=== PATIENT | female | born 1965 | race Caucasian/White ===

== ENCOUNTER 2019-08-13 11:51 | Emergency (ER) | payer OTHER ==
[~2019-08-13] VITALS: Ht 162.6 cm; Wt 90.7 kg
[~2019-08-13 11:51] MED LIST: AVONEX30 MCG/0.5; MOTRIN800 MG; NEURONTIN600 MG; NORFLEX100 MG PO; ORAPRED ODT15 MG/TAB PO; SYNTHROID50 MCG; TENORMIN25 MG; TORADOL10 MG PO
[2019-08-13] MEDS ORDERED: AUBAGIO7 MG (12:22)
== END 2019-08-13 18:29 | disposition home or self-care (01) ==
LOC: ER 11:51
DX: M79.661 Pain in right lower leg (principal)